=== PATIENT | male | born 1995 | race Native Hawaiian/Other Pacific Islander ===

== ENCOUNTER 2018-03-23 18:52 | Emergency (ER) | payer OTHER ==
[~2018-03-23] VITALS: Ht 175.3 cm; Wt 61.2 kg
[2018-03-23 19:27] VITALS: BP 113/87; TEMP 98.1
== END 2018-03-23 19:27 | disposition home or self-care (01) ==
LOC: ED 18:52
DX: H92.03 Otalgia, bilateral (principal)
CPT/HCPCS: 99282